=== PATIENT | female | born 1950 | race Caucasian/White ===

== ENCOUNTER → 2018-01-14 | Outpatient (CLI) | payer MEDICARE ==
[~2018-01-14] MED LIST: ALBUTEROL SULFAT2 MG PO; ALBUTEROL0.63 MG/3 INH; BREO INH; FIBER CAPSULES PO; FUROSEMIDE40 MG PO; METFORMIN HCL500 MG PO; PREDNISONE5 MG PO; SPIRONOLACTONE25 MG PO; VITAMIN B-121000 MCG PO; VITAMIN D 3 PO
--- NOTE | 2018-01-14 09:11 | Diagnostic Imaging Report ---
PROCEDURE:CHEST 2 VIEWS TECHNIQUE:PA and lateral chest INDICATION:Shortness of breath. Bird fancier's syndrome. COMPARISON:Patients [facility], CT, CT CHEST W/O CONTRAST, 03/28/2009, 16:32. FINDINGS: Interstitial thickening with groundglass opacity. No focal airspace disease. Upper limits of normal heart size for technique, with prominent central vasculature. Intact skeleton. Chronic T6 compression deformity with postoperative sequela of vertebroplasty. 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 Dictated by: Seth Akhtar M.D. on 01/14/2018 at 9:13 Electronically approved by: Seth Akhtar M.D. on 01/14/2018 at 9:13
== END ==
LOC: RAD 08:18
PROVIDERS: ATTEND Internal Medicine Pulmonary Disease
DX: J84.10 Pulmonary fibrosis, unspecified (principal)
CPT/HCPCS: 71046